=== PATIENT | female | born 1975 ===

== ENCOUNTER 2022-04-08 11:28 | Emergency (ER) | payer BC ==
[2022-04-08] MEDS ORDERED: LORazepam 2 MG/ML SDV IVPUSH ONE (12:00)
[2022-04-08] MEDS ORDERED: Sodium Chloride 0.9% 10 ML Syringe FLUSH PRN (12:00)
[2022-04-08] MEDS ORDERED: Ondansetron 4 MG/2 ML SDV IVPUSH ONE (12:00)
[2022-04-08] MEDS ORDERED: Sodium Chloride 0.9% 1,000 ML IV ONE (12:00)
[2022-04-08] MEDS ORDERED: Sodium Chloride 0.9% 2.5 ML Syringe FLUSH PRN (12:00)
[2022-04-08 13:42] LABS: BLOOD UREA NITROGEN,BUN 4 mg/dL (7.0-18.0); CHLORIDE,CL 98 mmol/L (98-107); GLUCOSE RANDOM 131 mg/dL (74-106); LIPASE 145 U/L (73-393); POTASSIUM,K 2.9 mmol/L (3.5-5.1); SODIUM,NA 138 mmol/L (136-145)
[2022-04-08 13:48] LABS: ESTIMATED GFR 79 mL/min (>60)
[2022-04-08] MEDS ORDERED: Iopamidol 755 MG/ML 500 ML Multipack Bottle IVPUSH STA (14:14)
[2022-04-08] MEDS ORDERED: Potassium Chloride 10% 20 MEQ/15 ML Soln 30 ML UD Cup PO ONE (14:25)
== END 2022-04-08 17:36 | disposition home or self-care (01) ==
LOC: MW.ED 11:28
DX: E86.0 Dehydration (principal); E87.6 Hypokalemia; R10.30 Lower abdominal pain, unspecified; N83.209 Unspecified ovarian cyst, unspecified side; F10.239 Alcohol dependence with withdrawal, unspecified; J44.9 Chronic obstructive pulmonary disease, unspecified; Z88.0 Allergy status to penicillin; Z20.822 Contact with and (suspected) exposure to COVID-19
CPT/HCPCS: 36415; 74177; 76857; 80053; 80307; 83690; 83735; 85025; 87635; 96361; 96374; 96375; 99284; J2060; J2405; J3490; J7030; Q9967; U0002